=== PATIENT | male | born 1955 | race Caucasian/White ===

== ENCOUNTER → 2022-01-12 | Outpatient (CLI) | payer MEDICARE ==
--- NOTE | 2022-01-12 16:54 | KCIC ---
EXAM: XR CHEST 2V 01/12/2022 3:10 PM CLINICAL INDICATION: Chest congestion and tightness, nonsmoker COMPARISON: None TECHNIQUE: PA and lateral views of the chest FINDINGS: The heart is normal in size. Lungs are adequately expanded. There is elevation of the righ t hemidiaphragm. No consolidation, pleural effusion, or pneumothorax. There is a calcified granuloma in the right lung base. No acute osseous abnormality. IMPRESSION: No acute cardiopulmonary abnormality. Electronically signed by: Claire Jack MD (01/12/2022 4:52 PM) [id number]
== END ==
LOC: KCIC 15:05
PROVIDERS: ATTEND Family Medicine
DX: J84.10 Pulmonary fibrosis, unspecified (principal); R09.89 Other specified symptoms and signs involving the circulatory and respiratory systems
CPT/HCPCS: 71046